=== PATIENT | female | born 1995 | race African-American/Black ===

== ENCOUNTER 2016-11-12 15:05 | Emergency (ER) | payer OTHER ==
[~2016-11-12] VITALS: Ht 165.1 cm; Wt 93.0 kg
[2016-11-12] MEDS ORDERED: PREN1CHW4 PO (15:18)
[2016-11-12] MEDS ORDERED: ACETAMINOPHEN 325 MG TAB PO ONE (17:15)
[2016-11-12] MEDS ORDERED: MACR100C3 PO (18:24)
[2016-11-12] MEDS ORDERED: NITROFURANTOIN (MACROBID) 100 MG CAP PO ONE (18:30)
[2016-11-12 18:35] VITALS: BP 128/65
--- NOTE | 2016-11-13 07:26 | REP ---
OB ULTRASOUND: Real-time sonographic evaluation of the gravid uterus performed. There is a single living intrauterine gestation with an estimated gestational age of 13 weeks 6 days based on LMP with EDC 05/14/2017. Today's measurements indicate appropriate growth. BPD 27 mm 14 weeks 5 days, 64th percentile HC 99 mm 14 weeks 4 days, 61st percentile AC 80 mm 14 weeks 3 days, 53rd percentile FL 13 mm 13 weeks 5 days, 32nd percentile HC/AC ratio 1.24, within normal range. Estimated weight 91 grams 32nd percentile. Cervix closed and measures 3.0 cm in length. heart rate 153 beats per minute. It is too early to evaluate anatomy. There is no subchorionic hemorrhage. Placenta is anterior with no previa. Left ovary is visualized and demonstrates internal blood flow with duplex Doppler evaluation, with no torsion. Signed by Ton Flannery MD 11/13/2016 04:34 P
== END 2016-11-12 18:37 | disposition home or self-care (01) ==
LOC: M ED 16:07
DX: O23.41 Unspecified infection of urinary tract in pregnancy, first trimester (principal); Z3A.13 13 weeks gestation of pregnancy

== ENCOUNTER 2016-12-09 05:22 | Emergency (ER) | payer OTHER ==
[~2016-12-09] VITALS: Ht 165.1 cm; Wt 94.3 kg
[~2016-12-09 05:22] MED LIST: MACR100C3 PO; PREN1CHW4 PO
[2016-12-09] MEDS ORDERED: UNIS50CA PO (05:34)
[2016-12-09] MEDS ORDERED: ACETAMINOPHEN TAB 650MG DOSE (2X325MG) PO ONE (06:00)
--- NOTE | 2016-12-09 07:00 | REPUSA ---
HISTORY: Abdominal pain. TECHNIQUE: Multiple sonographic images were obtained in multiple projections. Transabdominal techniqu e was utilized. COMMENTS: Single, live intrauterine gestation. Vertex presentation. motion was identified. Posterior/fundal placenta. heart rate 160 beats per minute. Amniotic fluid index 9.8 cm. Estimated weight 274 g. No maternal adnexal abnormality. Estimated gestation age 18 weeks and 6 days. Estimated delivery date on 05/06/2017. IMPRESSION: Single, live intrauterine gestation. No abnormality seen. Thank you for your kind referral of this patient.
[2016-12-09 08:26] VITALS: BP 105/37
== END 2016-12-09 09:03 | disposition home or self-care (01) ==
LOC: M ED 06:20
DX: O99.89 Other specified diseases and conditions complicating pregnancy, childbirth and the puerperium (principal); R10.2 Pelvic and perineal pain; Z3A.00 Weeks of gestation of pregnancy not specified; Z79.899 Other long term (current) drug therapy

== ENCOUNTER 2017-01-08 09:35 | Outpatient (CLI) | payer OTHER ==
[~2017-01-08] VITALS: Ht 165.1 cm; Wt 94.0 kg
[~2017-01-08 09:35] MED LIST changes: +UNIS50CA PO
[2017-01-08 09:44] VITALS: BP 117/58
[2017-01-08 10:19] LABS: MEAN CORPUSCULAR HEMOGLOBIN 30.3 pg (27.0-33.0); MEAN CORPUSCULAR HGB CONC 35.9 g/dl (32.0-36.5); MEAN CORPUSCULAR VOLUME 84.5 fl (80.0-96.0); RED CELL DISTRIBUTION WIDTH 13.5 % (11.5-14.5)
--- NOTE | 2017-01-08 17:36 | HPE ---
DATE OF ADMISSION: 01/08/2017 HISTORY OF PRESENT ILLNESS: A 21-year-old 2, para 0, abortio 1, last menstrual period (LMP) 01/06/2016, estimated date of confinement (EDC) 05/14/2017, at 23 weeks gestation had a fall in . No loss of consciousness, no loss of fluids. No contractions. Came in for assessment and monitoring. Her risk factors are sickle cell trait and she has enlarged thyroid. Thyroid exam was normal. Thyroid labs were normal. LABORATORY DATA: O positive, HIV negative, hepatitis negative, RPR negative, rubella immune. Varicella immune. Urine was positive. Gonorrhea and chlamydia negative. 1-hour glucose 111. Hemoglobin fractionation was negative and CF was negative. PHYSICAL EXAMINATION: On examination, no acute distress. heart is present. No contractions are noted. Normocephalic, atraumatic. Neck full range of motion. Pupils equal and reactive to light. Thyroid is midline. No jugular venous distention (JVD), bruits. Nontender. Lungs are clear bilaterally to bases. No wheezes or rhonchi. Distal pulses symmetric. No evidence of deep venous thrombosis (DVT), pulmonary embolism (PE) or superficial phlebitis. No costovertebral angle tenderness. Uterus is nontender. Four quadrant bowel sounds are noted. Appropriate symphysis fundus height. Ultrasound shows an ARCHIE of 10.6. Placenta posterior. heart rate 144. Cervix is closed and vertex eventually presentation. BPD normal at 21 and 3. Family history, past surgical and medical history unremarkable. She does not smoke or drink or abuse drugs, there is no domestic violence. Her urine is 1.005, pH 6 negative. Blood pressure 06351, respirations 18, pulse 82, temperature 97.5. Hemoglobin is normal in 10.2, hematocrit 28.4, platelets were 233, and Betke Kleihauer was negative. ASSESSMENT: In summary we have a 21-23 weeks gestation who had a fall in . No risk. Precautions were given, undelivered. Has a followup appointment in the office.
== END 2017-01-08 11:30 | disposition home or self-care (01) ==
LOC: M LDO 09:35
PROVIDERS: ATTEND Obstetrics & Gynecology
DX: O99.89 Other specified diseases and conditions complicating pregnancy, childbirth and the puerperium (principal); Z3A.23 23 weeks gestation of pregnancy; Z14.8 Genetic carrier of other disease; E04.9 Nontoxic goiter, unspecified; W19.XXXA Unspecified fall, initial encounter; X58.XXXA Exposure to other specified factors, initial encounter; Y93.9 Activity, unspecified; Y92.9 Unspecified place or not applicable; Y99.8 Other external cause status

== ENCOUNTER 2017-01-11 08:41 | Outpatient (CLI) | payer OTHER ==
[~2017-01-11] VITALS: Ht 165.1 cm; Wt 91.0 kg
[~2017-01-11 08:41] MED LIST changes: -MACR100C3 PO; +MACR100C43 PO
[2017-01-11 09:02] VITALS: BP 98/51
[2017-05-24] MEDS ORDERED: COLA100C5 PO (09:31)
[2017-05-24] MEDS ORDERED: OXYC1TAB23 PO (09:33)
[2017-05-24] MEDS ORDERED: IBUP-1114 PO (09:33)
== END 2017-01-11 09:53 | disposition home or self-care (01) ==
LOC: M LDO 08:41
PROVIDERS: ATTEND Obstetrics & Gynecology
DX: O99.89 Other specified diseases and conditions complicating pregnancy, childbirth and the puerperium (principal); M54.5 Low back pain; R10.30 Lower abdominal pain, unspecified; Z3A.22 22 weeks gestation of pregnancy

== ENCOUNTER 2017-03-30 08:02 | Outpatient (CLI) | payer OTHER ==
[~2017-03-30] VITALS: Ht 165.1 cm; Wt 95.0 kg
[2017-03-30 08:22] VITALS: BP 114/68
[2017-03-30 09:22] VITALS: BP 115/65
--- NOTE | 2017-03-30 10:34 | HPE ---
DATE OF ADMISSION: 03/30/2017 HISTORY: This lady is a 22-year-old, 2, para 0, aborto 1, last menstrual period (LMP) 08/07/2016, estimated date of confinement (EDC) is 05/14/2017, at 33 and 2 weeks of gestation. She has a history of a sore throat for 2 days, called her mother and was told to come to labor and delivery. Her risk factors are that her is sickle cell trait, she is mildly obese and has an enlarged thyroid. PAST HISTORY: In 2016, at 9 weeks, had a spontaneous . LABORATORIES: O positive. HIV negative. Hepatitis negative. RPR negative. Rubella immune. Varicella immune. Urine was mixed culture. Gonorrhea and chlamydia are negative. 1-hour glucose was 111. EXAMINATION: Today in no distress, except for a sore throat, which she has been drinking orange juice, making it worse. Category 1 strip. She is normocephalic, atraumatic. Neck full range of motion. Pupils equal and reactive to light. Chest is clear bilaterally to bases. No wheezes or rhonchi. No costovertebral angle (CVA) tenderness. Symphysis fundus height is appropriate. Active fetus noted. Four quadrant bowel sounds are noted. No rashes, lesions, pruritus. No lymphadenopathy. No arthralgia. No myalgia. She has a complaint of a sore throat but no wheezes, cough. No shortness of breath or dyspnea on exertion. No chest pain. Not bleeding. Neuro complete. No incontinency, urgency or frequency. No nausea, vomiting, diarrhea or constipation. No diabetic issues. No AU PAIR. Past medical history has been unremarkable. Surgical history and family history noncontributory. She does not smoke, drink, abuse drugs. She is . There is no domestic violence. Her blood pressure is 115/65, respirations are 20, pulse 82, temperature 98.1. Urine is 1.010, 7 pH is negative. She was assessed here and not in labor. She had some low back pain but she has had that before. She was sent to the emergency department for rapid assessment of her sore throat. She was told to gargle with salt water and she is to keep her appointment on 04/08/2017. Precautions were given regarding labor, kick chart, premature rupture of membranes and bleeding. The patient was discharged to the emergency room.
[2017-05-24] MEDS ORDERED: COLA100C5 PO (09:31)
[2017-05-24] MEDS ORDERED: OXYC1TAB23 PO (09:33)
[2017-05-24] MEDS ORDERED: IBUP-1114 PO (09:33)
== END 2017-03-30 09:43 | disposition home or self-care (01) ==
LOC: M LDO 08:02
PROVIDERS: ATTEND Obstetrics & Gynecology
DX: O99.89 Other specified diseases and conditions complicating pregnancy, childbirth and the puerperium (principal); J02.9 Acute pharyngitis, unspecified; E66.9 Obesity, unspecified; E04.9 Nontoxic goiter, unspecified; Z3A.33 33 weeks gestation of pregnancy

== ENCOUNTER 2017-03-30 09:58 | Emergency (ER) | payer OTHER ==
[~2017-03-30] VITALS: Ht 165.1 cm; Wt 98.2 kg
[2017-03-30 10:05] VITALS: BP 116/69
[2017-05-24] MEDS ORDERED: COLA100C5 PO (09:31)
[2017-05-24] MEDS ORDERED: IBUP-1114 PO (09:33)
[2017-05-24] MEDS ORDERED: OXYC1TAB23 PO (09:33)
== END 2017-03-30 11:04 | disposition home or self-care (01) ==
LOC: M ED 09:58
DX: O98.513 Other viral diseases complicating pregnancy, third trimester (principal); J02.9 Acute pharyngitis, unspecified; Z3A.33 33 weeks gestation of pregnancy

== ENCOUNTER 2017-08-30 23:58 | Emergency (ER) | payer OTHER ==
[2017-08-31] MEDS: METOCLOPRAMIDE 5 MG TAB PO (04:10)
[2017-08-31] MEDS: OXYCODONE/APAP 5MG/325MG(BULK FOR ED) 1 TABLET PO (04:11)
== END 2017-08-31 04:17 | disposition home or self-care (01) ==
LOC: M ED 23:58
DX: R51 Headache (principal)
CPT/HCPCS: 99283